=== PATIENT | female | born 1970 | race African-American/Black ===

== ENCOUNTER 2018-12-14 06:40 | Day surgery (SDC) | payer OTHER ==
[~2018-12-14] VITALS: Ht 170.2 cm; Wt 152.0 kg
[~2018-12-14 06:40] MED LIST: HYDR50TA6 PO; NAPR-514 PO; PHEN37.53 PO; TRAM50TA PO
[2018-12-14] MEDS ORDERED: BUPIVACAINE-EPI 0.25%-1:200000 MPF 30 ML VIAL. ONE (06:51)
[2018-12-14] MEDS ORDERED: MORPHINE SULFATE 2 MG/ML VIAL. IV PRN (07:00)
[2018-12-14] MEDS ORDERED: LIDOCAINE 1% PF 2 ML VIAL. ID PRN (07:00)
[2018-12-14] MEDS ORDERED: ONDANSETRON PF 4 MG/2 ML VIAL. IV PRN (07:00)
[2018-12-14] MEDS ORDERED: IV RINGERS,LACTATED 1000ML 1,000 ML IV SCH (07:00)
[2018-12-14] MEDS ORDERED: HYDROmorphone 2 MG/ML VIAL IV PRN (07:00)
[2018-12-14] MEDS ORDERED: fentaNYL PF VIAL 100 MCG/2 ML VIAL IV PRN ×2 (07:00)
[2018-12-14] MEDS ORDERED: PROCHLORPERAZINE 10 MG/2 ML VIAL. IV PRN (07:00)
[2018-12-14] MEDS ORDERED: LIDOCAINE 2% PF 5 ML VIAL. ONE (07:11)
[2018-12-14] MEDS ORDERED: ONDANSETRON PF 4 MG/2 ML VIAL. ONE (07:11)
[2018-12-14] MEDS ORDERED: FAMOTIDINE 20 MG/2 ML VIAL ONE (07:11)
[2018-12-14] MEDS ORDERED: DEXAMETHASONE SOD PHOS 20 MG/5 ML VIAL. ONE (07:11)
[2018-12-14] MEDS ORDERED: PROPOFOL 20 ML IV ONE (07:11)
[2018-12-14] MEDS ORDERED: KETOROLAC 30 MG/ML INJ FOR OR. INJ ONE (07:12)
[2018-12-14] MEDS ORDERED: MIDAZOLAM HCL/PF 2 MG/2 ML VIAL. ONE (07:12)
--- NOTE | 2018-12-14 07:27 | DISCH ---
DISCHARGE INSTRUCTIONS Condition on Discharge Condition on Discharge: Stable Activity After Discharge Activity Instructions for Disc: Other, see below (avoid hard grasping, fine motor use permitted such as grasping silverware, tapping on a keyboard or computer in a very limited fashion) Lifting Instructions after Dis: No heavy lifting, No pulling or pushing Weight Bearing Status after Di: Non weight bearing Diet after Discharge Diet after Discharge: Regular Wound Incision Care Wound/Incision Care: Do not change dressing (keep dressing clean and dry until follow-up) Contacting the after DC Call your doctor for: Concerns you may have Follow-Up Follow up with: Dr. Cuadra 10 days at [facility] AMRIK CUADRA MD Dec 14, 2018 07:27
[2018-12-14] MEDS ORDERED: HYDR-3165 PO (07:28)
[2018-12-14 07:33] LABS: U PREG PATIENT NEGATIVE (NEG)
[2018-12-14] MEDS ORDERED: SEVOFLURANE 31 TO 60 MINUTES. IH ONE (08:16)
--- NOTE | 2018-12-14 08:28 | PDOC4 ---
Operative Note Operative Note Date of surgery: 12/14/2018 Preoperative diagnosis: Left carpal tunnel syndrome Postoperative diagnosis: Same with moderate median nerve compression Operative procedure: Left carpal tunnel release Surgeon: Khalif Anesthesia: Gen. Estimated blood loss: 1 mL Complications: None Operative indications: Alejandro is a 48-year-old female that has developed progressive carpal tunnel syndrome due to her work duties. Please see my detailed history and physical for details operative indications. I went over with her possibility of ongoing nonoperative management but she has had progression despite bracing and other nonoperative strategies and has worsening numbness and tingling with confirmed median nerve compression at the carpal tunnel on EMG. I gone over with her risks benefits postoperative course of operative release including the possibility of nerve or blood vessel damage continued pain recurrence infection medical or other anesthetic competitions among others all her questions were answered she agrees to proceed with surgical evaluation and treatment. Operative text: Patient was identified procedure verified patient placed in the supine position on the operating table. After adequate amounts of general anesthesia were obtained a upper arm tourniquet was placed in the left upper extremity was prepped and draped in standard sterile fashion. After timeout was performed patient procedure identified and verified the left upper extremity was exsanguinated by Esmarch bandage tourniquet inflated to 300 mmHg and a longitudinal incision was made just distal to the distal wrist crease. Dissection was carried out down to the transverse carpal ligament which was divided under direct visualization and verified both visually and palpably to be completely released median nerve was noted to have moderate compression tendons were intact and noted synovitis was noted. Quarter percent Marcaine was infused in the subcutaneous area and skin edges closure accomplished with nylon suture in vertical mattress fashion sterile dressings were applied fingers are noted be warm pink find deflation of tourniquet patient was returned recovery room in stable condition having tolerated procedure well AMRIK EATON MD Dec 14, 2018 08:28
[2018-12-14] MEDS ORDERED: HYDROcodone/APAP 7.5/325MG 1 TAB TABLET PO ONE (08:30)
[2018-12-14 09:50] VITALS: BP 121/80
== END 2018-12-14 09:55 | disposition home or self-care (01) ==
LOC: SURG 06:40
PROVIDERS: ATTEND Orthopaedic Surgery
DX: G56.02 Carpal tunnel syndrome, left upper limb (principal); I10 Essential (primary) hypertension; M65.88 Other synovitis and tenosynovitis, other site; M19.90 Unspecified osteoarthritis, unspecified site; Z90.49 Acquired absence of other specified parts of digestive tract
CPT/HCPCS: 64721; 81025; A7015; J0696; J0780; J1100; J1885; J2001; J2250; J2405; J2704; J3490